=== PATIENT | female | born 1935 | race Caucasian/White ===

== ENCOUNTER → 2016-11-02 | Outpatient (CLI) | payer MEDICARE, OTHER ==
[~2016-11-02] MED LIST: ATIVAN2 MG PO; BACTRIM DS TABL1 TA1 PO; BENAZEPRIL-HCTZ1 T14 PO; BENAZEPRIL/HCTZ PO; BP MED; CLONAZEPAM0.5 MG PO; COREG3.125 MG PO; DIPHEDRYL25 M1 PO; KEFLEX500 M1 PO; KLONOPIN PO; LORTAB 7.5-5001 TAB PO; METOPROLOL SUCC25 MG PO; NIACIN500 M1 PO; NITROGLYGERIN0.4 MG SL; PAXIL40 MG PO; PREDNISONE PO; SIMVASTATIN40 MG PO; THERAGRAN-M PRE1 TAB PO; VISTARIL PO; VYVANSE20 MG PO; ZOCOR PO
[2016-11-02 18:24] LABS: URINE APPEARANCE HAZY; URINE BILIRUBIN NEG (NEG); URINE BLOOD NEG (NEG); URINE COLOR YELLOW; URINE GLUCOSE NEG (NORM); URINE KETONE NEG (NEG); URINE LEUKOCYTE ESTERASE 2+ (NEG); URINE NITRATE POS (NEG); URINE PROTEIN TRACE (NEG); URINE SPECIFIC GRAVITY 1.025 (1.003-1.035)
[2016-11-02 18:26] LABS: EOSINOPHIL% 0.1 % (0.0-7.0); HEMATOCRIT 40.4 % (35.0-45.0); HEMOGLOBIN 13.5 gm/dL (12.0-16.0); LYMPHOCYTE# 2.5 X10e3 (1.0-3.5); LYMPHOCYTE% 31.2 % (17.0-45.0); MEAN CELL VOLUME 90.7 FL (83-96); MEAN CORPUSCULAR HEMOGLOBIN 30.3 PG (28-34); MEAN CORPUSCULAR HGB CONC 33.4 g/dL (30-36); MEAN PLATELET VOLUME 10.4 FL (6.5-11.5); MONOCYTE# 0.6 X10e3 (0-1.0); MONOCYTE% 7.2 % (3.0-12.0); NEUTROPHIL# 4.8 X10e3 (1.5-7.1); NEUTROPHIL% 61.5 % (40-75); PLATELET COUNT 189 X10e3 (140-420); RED BLOOD COUNT 4.45 X10e (3.90-5.30); WHITE BLOOD COUNT 7.9 X10e3 (4.0-10.5)
[2016-11-02 18:30] LABS: MICRO INDICATED? YES
[2016-11-02 18:32] LABS: DIFF IND NO
[2016-11-02 18:42] LABS: ALBUMIN SERUM 3.6 g/dL (3.5-5.0); BILIRUBIN,TOTAL 0.3 mg/dL (0.2-2.0); BUN/CREATININE RATIO 21.25; CALCIUM SERUM 8.9 mg/dL (8.4-10.2); CREATININE SERUM 0.8 mg/dL (0.6-1.4); GLOM FILT RATE Estimated 68.7 mL/min (>60); POTASSIUM 3.9 mmol/L (3.5-5.1); PROTEIN TOTAL SERUM 6.3 g/dL (6.0-8.3)
[2016-11-02 18:50] LABS: CULTURE INDICATED? YES; URINE BACTERIA 2+ (NEG); URINE MUCUS PRESENT; URINE SQUAMOUS EPITHELIAL CELL MODERATE /[HPF]; URINE WBC 50-100 /[HPF] (0-5)
[2016-11-02 23:34] LABS: FOLATE (FOLIC ACID) 10.2 ng/mL (>5.8)
== END | disposition home or self-care (01) ==
LOC: CCART 18:05
PROVIDERS: Internal Medicine
DX: N39.0 Urinary tract infection, site not specified (principal)
CPT/HCPCS: 80053; 80178; 81003; 82140; 82306; 82607; 82746; 84443; 85025; 87086; 87088; 87186

== ENCOUNTER 2016-12-02 08:50 | Emergency (ER) | payer MEDICARE ==
--- NOTE | ~2016-12-02 | CR211 ---
[facility] A Service of [facility] & [facility] RADIOLOGY TEXT RESULTS PATIENT: HERNANDEZ KOVACS LOCATION: [facility] : 33 UNIT #: [id number] AGE: [address]: Navdeep Combs MD SEX: F ORDER DR: [id number] [facility] [address] [place], [place] [address] [id number] E MR#: [id number] #: [id number] NAME: HERNANDEZ KOVACS : 1935 SEX: F STUDY DATE/TIME: 12/02/2016 9:22 UNIT: [facility] ROOM: STUDY DESCRIPTION: CR Ribs Uni 2 View W PA Ch Rt Attending Physician: Navdeep Combs M.D. Ordering Physician: Navdeep Combs M.D. Primary Care Physician: Emily BryantRHannah MEDICAL IMAGING REPORT This report is preliminary unless electronic signature is present EXAM Right rib series with PA chest INDICATIONS Rib pain this morning after falling. No comparisons are available at this time. FINDINGS There is no evidence for displaced rib fracture. No pneumothorax. IMPRESSION No evidence for displaced rib fracture. Dictated by... Zeyad Lechuga M.D. THIS IS AN ELECTRONICALLY VERIFIED REPORT Zeyad Lechuga M.D. at 12/03/2016 2:19 PM ARS/carmela TD: 12/02/2016 23:13 JOB #: [id number] MEDICAL IMAGING REPORT Page 1 of 1 COPY
== END 2016-12-02 10:30 | disposition home or self-care (01) ==
LOC: CED 08:50
DX: S20.211A Contusion of right front wall of thorax, initial encounter (principal); I10 Essential (primary) hypertension; Z76.89 Persons encountering health services in other specified circumstances; Z88.8 Allergy status to other drugs, medicaments and biological substances; Z79.899 Other long term (current) drug therapy; W01.0XXA Fall on same level from slipping, tripping and stumbling without subsequent striking against object, initial encounter; Y92.9 Unspecified place or not applicable
CPT/HCPCS: 71101; 94010; 96372; 96374; 99283; J1885

== ENCOUNTER 2016-12-13 12:03 | Emergency (ER) | payer MEDICARE ==
[2016-12-13 13:17] LABS: BASOPHIL% 0.5 % (0-2.5); HEMATOCRIT 40.9 % (35.0-45.0); LYMPHOCYTE# 2.4 X10e3 (1.0-3.5); LYMPHOCYTE% 25.5 % (17.0-45.0); MEAN CELL VOLUME 91.1 FL (83-96); MEAN CORPUSCULAR HGB CONC 31.8 g/dL (30-36); MEAN PLATELET VOLUME 9.3 FL (6.5-11.5); MONOCYTE# 0.5 X10e3 (0-1.0); MONOCYTE% 5.3 % (3.0-12.0); NEUTROPHIL# 6.5 X10e3 (1.5-7.1); NEUTROPHIL% 68.7 % (40-75); PLATELET COUNT 285 X10e3 (140-420); RED BLOOD COUNT 4.49 X10e (3.90-5.30); RED CELL DISTRIBUTION WIDTH 13.7 % (11.0-15.5); WHITE BLOOD COUNT 9.5 X10e3 (4.0-10.5)
[2016-12-13 13:18] LABS: DIFF IND NO
[2016-12-13 14:07] LABS: URINE SOURCE CLEAN CATCH
[2016-12-13 14:22] LABS: ALBUMIN SERUM 3.4 g/dL (3.5-5.0); BILIRUBIN, DIRECT 0.2 mg/dL (0.0-0.2); BILIRUBIN,INDIRECT 0.5 mg/dL (0.0-0.9); BILIRUBIN,TOTAL 0.7 mg/dL (0.2-2.0); BUN/CREATININE RATIO 13.33; CALCIUM SERUM 8.9 mg/dL (8.4-10.2); CREATININE SERUM 0.9 mg/dL (0.6-1.4); GLOM FILT RATE Estimated 59.6 mL/min (>60); POTASSIUM 4.7 mmol/L (3.5-5.1); PROTEIN TOTAL SERUM 6.5 g/dL (6.0-8.3)
[2016-12-13 14:28] LABS: URINE APPEARANCE CLEAR; URINE BILIRUBIN NEG (NEG); URINE BLOOD NEG (NEG); URINE COLOR YELLOW; URINE GLUCOSE NEG (NEG); URINE KETONE NEG (NEG); URINE LEUKOCYTE ESTERASE NEG (NEG); URINE NITRATE NEG (NEG); URINE PH 8.5 (5-8); URINE PROTEIN NEG (NEG); URINE SPECIFIC GRAVITY 1.008 (1.003-1.035); URINE UROBILINOGEN 0.2 MG/DL (NEG)
[2016-12-13 14:38] LABS: CULTURE INDICATED? NO
== END 2016-12-13 15:07 | disposition home or self-care (01) ==
LOC: CED 12:03
PROVIDERS: Emergency Medicine
DX: R19.7 Diarrhea, unspecified (principal); I10 Essential (primary) hypertension; Z88.2 Allergy status to sulfonamides; Z88.8 Allergy status to other drugs, medicaments and biological substances; Z79.899 Other long term (current) drug therapy
CPT/HCPCS: 36415; 80048; 80076; 81003; 83690; 85025; 96360; 99284